=== PATIENT | male | born 1945 | race African-American/Black ===

== ENCOUNTER → 2019-10-30 | Outpatient (CLI) | payer OTHER ==
[~2019-10-30] VITALS: Ht 180.3 cm; Wt 108.4 kg
[~2019-10-30] MED LIST: 24HR ALLERGY REL5 MG PO; ADVIL200 M3 PO; ALBUTEROL2.5 MG/3 M INH; ALLOPURINOL 30300 M1 PO; AMARYL2 MG PO; AMMONIUM LACTA385 GM TOP; ASPIR 8181 MG PO; CYCLOBENZAPRINE10 MG PO; DULERA 100 MCG/13 GM INH; FLONASE 0.05%50 MCG NARES; IRON325 PO; METFORMIN HCL1000 MG PO; MULTI VITAMIN1 EACH PO; NEXIUM 40 MG CA40 M1 PO; OMEPRAZOLE40 MG PO; RAMIPRIL10 MG PO; STOOL SOFTENER100 MG PO; TERAZOSIN HCL5 MG PO; VITAMIN E400 UNI6 PO; XYZAL5 MG PO
[2019-10-30 13:00] LABS: URINE BILIRUBIN NEGATIVE (Negative); URINE BLOOD NEGATIVE (Negative); URINE CLARITY CLEAR; URINE COLOR YELLOW; URINE GLUCOSE-RANDOM* NEGATIVE (Negative); URINE KETONES NEGATIVE (Negative); URINE LEUKOCYTES-REFLEX NEGATIVE (Negative); URINE NITRITE-REFLEX NEGATIVE (Negative); URINE PROTEIN (DIPSTICK) NEGATIVE (Negative); URINE SPECIFIC GRAVITY 1.015 (1.005-1.035); URINE UROBILINOGEN 0.2 E.U./dl (0.2-1.0)
[2019-10-30 13:03] LABS: HEMATOCRIT 40.6 % (42.0-52.0); HEMOGLOBIN 13.2 gm/dL (14.0-18.0); MCH 29.2 pg (26.0-34.0); MCHC 32.5 g/dL (28.0-37.0); MCV 89.8 fL (80.0-100.0); RBC 4.52 mil/uL (4.50-6.00); RDW 14.1 % (10.5-14.5); WBC 2.9 thou/uL (4.0-11.0)
[2019-10-30 13:13] LABS: ALBUMIN 3.9 g/dL (3.4-5.0); CALCIUM 8.7 mg/dL (8.5-10.1); CREATININE 1.4 mg/dL (0.7-1.3)
[2019-10-30 13:18] LABS: PROTIME 10.1 Seconds (9.3-11.4)
--- NOTE | 2019-10-30 15:28 | EKG ---
[address] [address] ELECTROCARDIOGRAM REPORT Name: COLT GOMES Room #: PRE IN .R.#: [id number] Admission: Attend Phys: Ricky Yeboah MD Discharge: Date of : 49 Report #: [id number] THIS REPORT FOR: //name// [facility] Test Date: 2019-10-30 Test Time: 12:57:32 Pat Name: COLT GOMES Department: Room: Gender: Tipple Supervisor: [email or web address] : 1945 Requested By: Ricky Yeboah Order Number: [id number] MD: Maximiliano Coles Measurements Intervals [place] Rate: 95 P: 53 ND: 125 QRS: -29 QRSD: 86 T: 18 QT: 348 QTc: 438 Interpretive Statements Sinus rhythm Borderline left axis deviation No previous ECG available for comparison Electronically Signed On 10-30-2019 15:27:34 [employer] by Maximiliano Coles [email or web address] <ELECTRONICALLY SIGNED> By: Maximiliano Coles MD 10/30/19 1527 1257 MD CATINA Hall
[2019-10-31 00:06] LABS: GLYCOHEMOGLOBIN (HGB A1C) 5.4 % (4.8-5.6)
== END ==
LOC: PAC 09:00 → PRE 11-13 08:16 → TBA 11-13 15:59 → PRE 11-15 10:09 → EDSTATUS 11-30 09:12
PROVIDERS: Orthopaedic Surgery
DX: R94.31 Abnormal electrocardiogram [ECG] [EKG] (principal)
CPT/HCPCS: 50010